=== PATIENT | female | born 1940 ===

== ENCOUNTER → 2018-11-13 10:03 | Outpatient (CLI) | payer MEDICARE, OTHER ==
--- NOTE | 2018-11-17 12:11 | ST ---
PATIENT:MIS RUSSO MEDICAL RECORD: [id number] SEX: F LOCATION:[facility] ORDER #: ADMISSION DATE: 11/13/18 AGE OF PATIENT: 78 REFERRING PHYSICIAN: INTERPRETING PHYSICIAN: MICAH PADGETT MD DATE OF SERVICE: 11/13/2018 Nuclear Stress Test INDICATION: Chest pain of unknown etiology, shortness of breath, abnormal ECG: Atrial fibrillation. She was exercised on standard Lexiscan protocol with 32 mCi of sestamibi injected at peak stress, 11 mCi were used previously for rest images. FINDINGS: Gated SPECT reveals preserved ejection fraction at 72% with good wall motion and thickening and brightening throughout all segments. SPECT imaging Cardiolite was used as myocardial fusion agent. There is homogeneous uptake throughout all segments at rest and stress with no evidence of inducible ischemia or previous infarction. OVERALL IMPRESSION: 1. This is a normal nuclear stress test with no evidence of inducible ischemia or previous infarction. 2. Gated SPECT reveals a preserved ejection fraction at 72%. In this patient with ongoing symptomatology, the current scan does not suggest the presence of hemodynamically significant coronary artery disease. Evaluate noncardiac etiology of chest pain. TRANSINT:[id number] Voice Confirmation ID: [id number] DOCUMENT ID: [id number] MICAH PADGETT MD at 1211 CC: [id number] DICTATION DATE: 11/14/18 1143 RN NEONATAL ICU: 11/14/18 2246 DEP CLI 11/13/18 [id number] [place] [address]
== END | disposition home or self-care (01) ==
LOC: D.HCCARDIO 10:00
DX: R06.02 Shortness of breath (principal)